=== PATIENT | female | born 1950 | race Two or more races ===

== ENCOUNTER → 2017-10-10 | Outpatient (CLI) | payer OTHER | END | disposition home or self-care (01) | LOC: NUCLEAR 11:00 | DX: M85.88 Other specified disorders of bone density and structure, other site (principal); M81.0 Age-related osteoporosis without current pathological fracture ==

== ENCOUNTER 2017-10-15 13:33 | Outpatient (CLI) | payer OTHER | END 2017-10-15 13:35 | disposition home or self-care (01) | LOC: MAMO-SONO 13:33 | DX: Z12.31 Encounter for screening mammogram for malignant neoplasm of breast (principal); N60.11 Diffuse cystic mastopathy of right breast; N60.12 Diffuse cystic mastopathy of left breast ==

== ENCOUNTER 2018-05-05 16:03 | Outpatient (CLI) | payer OTHER | END 2018-05-05 16:48 | disposition home or self-care (01) | LOC: RAD 16:03 | DX: M54.5 Low back pain (principal); M25.551 Pain in right hip; M25.552 Pain in left hip; M46.1 Sacroiliitis, not elsewhere classified; M43.16 Spondylolisthesis, lumbar region; M25.561 Pain in right knee; M25.562 Pain in left knee ==

== ENCOUNTER 2019-02-18 10:27 | Outpatient (CLI) | payer OTHER | END 2019-02-18 10:29 | disposition home or self-care (01) | LOC: SONOGRAMA 10:27 | DX: R10.84 Generalized abdominal pain (principal) ==

== ENCOUNTER 2019-10-25 14:08 | Outpatient (CLI) | payer OTHER | END 2019-10-25 14:14 | disposition home or self-care (01) | LOC: MAMO-SONO 14:08 | PROVIDERS: ATTEND Obstetrics & Gynecology | DX: Z12.31 Encounter for screening mammogram for malignant neoplasm of breast (principal); N60.11 Diffuse cystic mastopathy of right breast; N60.12 Diffuse cystic mastopathy of left breast ==

== ENCOUNTER 2019-11-24 15:26 | Outpatient (CLI) | payer OTHER | END 2019-11-24 15:39 | disposition home or self-care (01) | LOC: NUCLEAR 15:26 | PROVIDERS: ATTEND Internal Medicine Rheumatology | DX: M85.88 Other specified disorders of bone density and structure, other site (principal); M81.0 Age-related osteoporosis without current pathological fracture ==

== ENCOUNTER 2020-05-22 13:57 | Outpatient (CLI) | payer OTHER | END 2020-05-22 14:00 | disposition home or self-care (01) | LOC: LAB 13:57 | PROVIDERS: ATTEND Student in an Organized Health Care Education/Training Program | DX: N39.0 Urinary tract infection, site not specified (principal) ==

== ENCOUNTER 2020-06-13 15:22 | Outpatient (CLI) | payer OTHER | END 2020-06-13 15:30 | disposition home or self-care (01) | LOC: LAB 15:22 | PROVIDERS: ATTEND Internal Medicine | DX: K80.20 Calculus of gallbladder without cholecystitis without obstruction (principal); K80.10 Calculus of gallbladder with chronic cholecystitis without obstruction; K80.12 Calculus of gallbladder with acute and chronic cholecystitis without obstruction; K57.30 Diverticulosis of large intestine without perforation or abscess without bleeding; N32.3 Diverticulum of bladder; N93.0 Postcoital and contact bleeding; I10 Essential (primary) hypertension ==

== ENCOUNTER 2022-04-17 13:50 | Outpatient (CLI) | payer OTHER | END 2022-04-17 14:00 | disposition home or self-care (01) | LOC: MAMO-SONO 13:50 | PROVIDERS: ATTEND Obstetrics & Gynecology | DX: Z12.31 Encounter for screening mammogram for malignant neoplasm of breast (principal); N60.11 Diffuse cystic mastopathy of right breast; N60.12 Diffuse cystic mastopathy of left breast ==

== ENCOUNTER 2023-06-20 14:53 | Outpatient (CLI) | payer OTHER | END 2023-06-20 15:01 | disposition home or self-care (01) | LOC: RAD 14:53 | PROVIDERS: ATTEND Physical Medicine & Rehabilitation | DX: M54.2 Cervicalgia (principal); M54.59 Other low back pain ==

== ENCOUNTER 2024-04-21 13:47 | Outpatient (CLI) | payer OTHER | END 2024-04-21 13:49 | disposition home or self-care (01) | LOC: NUCLEAR 13:47 | PROVIDERS: ATTEND Internal Medicine Rheumatology | DX: M81.0 Age-related osteoporosis without current pathological fracture (principal) ==

== ENCOUNTER 2024-04-21 14:35 | Outpatient (CLI) | payer OTHER | END 2024-04-21 14:47 | disposition home or self-care (01) | LOC: MAMO-SONO 14:35 | PROVIDERS: ATTEND Obstetrics & Gynecology | DX: M15.8 Other polyosteoarthritis (principal); N60.11 Diffuse cystic mastopathy of right breast; N60.12 Diffuse cystic mastopathy of left breast; Z12.31 Encounter for screening mammogram for malignant neoplasm of breast ==

== ENCOUNTER 2024-09-01 14:28 | Outpatient (CLI) | payer OTHER | END 2024-09-01 14:31 | disposition home or self-care (01) | LOC: RAD 14:28 | PROVIDERS: ATTEND Internal Medicine Rheumatology | DX: M71.21 Synovial cyst of popliteal space [Baker], right knee (principal); M17.11 Unilateral primary osteoarthritis, right knee ==

== ENCOUNTER 2024-09-16 11:42 | Outpatient (CLI) | payer OTHER | END 2024-09-16 11:48 | disposition home or self-care (01) | LOC: MRI 11:42 | PROVIDERS: ATTEND Internal Medicine Rheumatology | DX: M17.11 Unilateral primary osteoarthritis, right knee (principal) | CPT/HCPCS: 73720; Q9965; 73721 ==

== ENCOUNTER 2025-03-08 12:23 | Outpatient (CLI) | payer OTHER | END 2025-03-08 12:31 | disposition home or self-care (01) | LOC: RAD 12:23 | PROVIDERS: ATTEND Physical Medicine & Rehabilitation | DX: M79.671 Pain in right foot (principal) ==

== ENCOUNTER → 2025-04-06 10:08 | Outpatient (CLI) | payer OTHER | END | disposition home or self-care (01) | LOC: NUCLEAR 10:00 | PROVIDERS: ATTEND Physical Medicine & Rehabilitation | DX: I87.2 Venous insufficiency (chronic) (peripheral) (principal) ==